=== PATIENT | male | born 1965 | race African-American/Black ===

== ENCOUNTER 2016-10-17 07:25 | Inpatient (IN) | payer OTHER ==
[2016-10-16 11:06] LABS: % IMMATURE GRANULYOCYTES 0.2 % (0.0-1.1); ABSOLUTE IMMATURE GRANULOCYTES 0.01 10^3/uL (0.00-0.10); ADD DIFF? NO; ADD MORPH? NO; ADD SCAN? NO; ATYPICAL LYMPHOCYTE FLAG 20 (0-99); FRAGMENT RBC FLAG 0 (0-99); HEMOGLOBIN 16.1 g/dL (13.7-17.5); LEFT SHIFT FLG 0 (0-99); LIPEMIA HEMOLYSIS FLAG 80 (0-99); MEAN CELL HEMOGLOBIN 29.2 pg (27.9-34.1); MEAN CELL HEMOGLOBIN CONCENTR. 33.5 g/dL (32.4-36.7); MEAN CELL VOLUME 87.1 fL (81.5-99.8); MEAN PLATELET VOLUME 8.5 fL (8.7-11.7); PLATELET CLUMPS FLAG 10 (0-99); PLATELET COUNT 367 10^3/uL (150-400); RED BLOOD CELL COUNT 5.51 10^6/uL (4.40-6.38)
--- NOTE | 2016-10-16 16:06 | GHP ---
[f rep st] PREOP HISTORY AND PHYSICAL DATE OF ADMISSION: 10/17/2016 PROBLEM: Severe right hip degenerative arthritis. HISTORY OF PRESENT ILLNESS: The patient is a 51-year-old male who will be admitted for a right hip resurfacing arthroplasty with Dr. Sharp at the [facility] on October 17, 2016. The patient had a left hip resurfacing arthroplasty in May 2016 with an excellent result. His right hip has also bothered him with activities such as putting on his shoes and socks, sleeping at night and prolonged standing. Because of the progressive and worsening pain as well as well as his debilitating pain, he has elected to proceed with a right hip resurfacing arthroplasty. The patient has tried and failed physical therapy based exercises, activity modification, and medication treatm ent. PAST MEDICAL HISTORY: Pertinent for hypertension and BPH. No history of MRSA, PE, DVT, hepatitis o r CAD. MEDICATIONS: Amlodipine, lisinopril, and an unknown BPH medication. MEDICATION ALLERGIES: He reports a medication allergy to Toradol, which causes severe headaches. N o history of metal allergies or sensitivities. SOCIAL HISTORY: The patient is . He lives in [place], [place]. 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 No history of tobacco or alcohol use. Occasional caffeine inta ke. No history of illicit drug use. Activities include jogging, walking and strength training. FAMILY HISTORY: Pertinent for hypertension. PHYSICAL EXAMINATION: GENERAL: He is an otherwise healthy-appearing 51-year-old male. VITAL SIGNS : Height 5 feet 11 inches tall, weight 260. BMI 35.8. HEENT: Head is normocephalic, atraumatic. Eyes are PERRLA. Conjunctivae and sclerae are clear. Mouth: He has good oral hygiene without any loose teeth. LUNGS: Clear. HEART: Regular rate and rhythm; without murmurs, gallops or rubs. E XTREMITIES: Pertinent findings are limited to the patient's right hip. He has full hip extension, 90 degrees of flexion, 0 degrees of internal rotation, 15 degrees of external rotation, and 30 degre es of abduction. He has pain at end range of all motions. DIAGNOSTIC IMAGING: Recent x-rays taken of the patient's right hip show severe [id number]-cmff degener ative arthritis with increased subchondral sclerosis, a few small subcortical cysts on both the femo ral head and acetabulum, as well as peripheral osteophyte formation. His left hip resurfacing arthr oplasty is in stable appearance. IMPRESSION: 1. Severe right hip degenerative arthritis. 2. Treated hypertension. 3. Recent diagnosis of benign prostatic hypertrophy. PLAN: The plan will be for the patient to undergo a right hip resurfacing arthroplasty. The surger y has been described to the patient including the risks, benefits and expectations. He understands the risk of sciatic nerve injury, metal allergy or sensitivities, infection, and risk of dislocation . Given his young age, he understands the possible need for future revision surgery. All his quest ions have been answered, and he consents to surgery here in the office. Copy requested to: [place] Niall Zhou /[id number]/ANDREINAL
[2016-10-17] MEDS ORDERED: LR 1,000 ML IV ONE (08:03)
[2016-10-17] MEDS ORDERED: LIDOCAINE 1% 5 ML SDV ID PRN (08:03)
[2016-10-17] MEDS ORDERED: SKIN ADHESIVE (DERMABOND) 1 EACH TP ONE (08:09)
[2016-10-17] MEDS ORDERED: ceFAZolin 1 GM/5 ML SYR ONE (08:10)
[2016-10-17] MEDS ORDERED: fentaNYL 250 MCG/5 ML INJ ONE (08:28)
[2016-10-17] MEDS ORDERED: PROPOFOL 200 MG/20 ML VIAL ONE ×3 (08:29→10:32)
[2016-10-17] MEDS ORDERED: TRANEXAMIC ACID IV ONE (08:30)
[2016-10-17] MEDS ORDERED: CHLORHEXIDINE GLUC HIBICLENS 118 ML BTL TP ONE ×2 (08:30→09:00)
[2016-10-17] MEDS ORDERED: CEFAZOLIN 2 GM/DEXTR 100 ML IV ONE (08:30)
[2016-10-17] MEDS ORDERED: NS IV ONE (08:30)
[2016-10-17] MEDS ORDERED: POVIDONE-IODINE 20 ML in SODIUM CL IRRIG SOLUTION 500 ML IRR ONE (08:30)
[2016-10-17] MEDS ORDERED: DEXAMETHASONE 4 MG/ML VIAL IVP ONE (08:30)
[2016-10-17] MEDS ORDERED: ACETAMINOPHEN 325 MG TAB PO ONE (08:30)
[2016-10-17] MEDS ORDERED: FAMOTIDINE 20 MG TAB PO ONE (08:30)
[2016-10-17] MEDS ORDERED: Herbals/Supplements -Info Only PO SCH (09:00)
[2016-10-17] MEDS ORDERED: ROPIVACAINE 0.2% 80 MG, EPINEPHrine 0.2 MG in BAG 0 ML IU ONE (09:00)
[2016-10-17] MEDS ORDERED: MIDAZOLAM 2 MG/2 ML VIAL ONE (09:19)
[2016-10-17] MEDS ORDERED: DEXAMETHASONE 4 MG/ML VIAL ONE ×2 (09:43)
[2016-10-17] MEDS ORDERED: morphINE *ANESTHESIA ONLY* 10 MG/ML VIAL ONE ×2 (09:45→10:22)
[2016-10-17] MEDS ORDERED: PHENYLEPHRINE HCL 100 MCG/ML SYR ONE (09:54)
[2016-10-17] MEDS ORDERED: epHEDrine SULFATE 10 MG/ML SYR ONE (10:01)
[2016-10-17] MEDS ORDERED: GLYCOPYRROLATE 0.2 MG/1 ML VIAL ONE (10:28)
[2016-10-17] MEDS ORDERED: PHENYLEPHRINE 10 MG/ML SDV ONE (10:37)
[2016-10-17] MEDS ORDERED: ONDANSETRON 4 MG/2 ML VIAL ONE (10:59)
--- NOTE | 2016-10-17 11:25 | POSTOPPROG ---
Post Op Note Date of Operation: 10/17/16 Surgeon: Quentin Sharp Network Director: Robin Anesthesiologist: Jesus Anesthesia: GET(General Endotracheal) Post-op Diagnosis: R hip arthritis Procedure: R BHR Inf/Abcess present in the surg proc area at time of surgery?: No EBL: 100-500
[2016-10-17] MEDS ORDERED: LACTULOSE 20 GM/30 ML UDCUP PO PRN (11:41)
[2016-10-17] MEDS ORDERED: NS 500 ML IV PRN (11:41)
[2016-10-17] MEDS ORDERED: PROMETHAZINE HCL 25 MG SUPPR PR PRN (11:41)
[2016-10-17] MEDS ORDERED: TEMAZEPAM 15 MG CAP PO PRN (11:41)
[2016-10-17] MEDS ORDERED: METOCLOPRAMIDE 10 MG/2 ML VIAL IVP PRN (11:41)
[2016-10-17] MEDS ORDERED: BISACODYL 10 MG SUPP PR PRN (11:41)
[2016-10-17] MEDS ORDERED: DIPHENOXYLATE/ATROPINE LOMOTIL 1 TAB PO PRN (11:41)
[2016-10-17] MEDS ORDERED: CYCLOBENZAPRINE 10 MG TAB PO PRN (11:41)
[2016-10-17] MEDS ORDERED: MAGNESIUM HYDROXIDE 30 ML UDCUP PO PRN (11:41)
[2016-10-17] MEDS ORDERED: ONDANSETRON 4 MG/2 ML VIAL IVP PRN (11:41)
[2016-10-17] MEDS ORDERED: diphenhydrAMINE 25 MG CAP PO PRN (11:41)
[2016-10-17] MEDS ORDERED: POLYETHYLENE GLYCOL 3350 17 GM PKT PO PRN (11:41)
[2016-10-17] MEDS ORDERED: PHARMACY PAIN CONSULT 1 EA MISC PRN (11:41)
[2016-10-17] MEDS ORDERED: ONDANSETRON DISINTEGRATING 4 MG TAB PO PRN (11:41)
[2016-10-17] MEDS ORDERED: traMADol 50 MG TAB PO PRN (11:41)
[2016-10-17] MEDS ORDERED: LR 1,000 ML IV SCH (12:00)
[2016-10-17] MEDS ORDERED: oxyCODONE IR 5 MG TAB ONE (12:15)
[2016-10-17] MEDS ORDERED: fentaNYL 100 MCG/2 ML INJ ONE ×2 (12:15→12:40)
--- NOTE | 2016-10-17 12:53 | GOP ---
[f rep st] OPERATIVE REPORT DATE OF OPERATION: 10/17/2016 SURGEON: Quentin Sharp MD COLOR MAKER DYER: Ramos Lowry CFA and Bishnu Jaeger PA-C. ANESTHESIA: General anesthesia. ANESTHESIOLOGIST: Kelby Lee MD PREOPERATIVE DIAGNOSIS: Right hip advanced degenerative arthritis. POSTOPERATIVE DIAGNOSIS: Right hip advanced degenerative arthritis. PROCEDURE PERFORMED: Right hip [place] hip resurfacing arthroplasty. FINDINGS: DESCRIPTION OF PROCEDURE: The patient was given 2 g of IV Ancef preoperatively within 60 minutes of surgery. He also received IV tranexamic acid at a dose of 20 mg/kg. He was placed on the operating room table and given spinal anesthesia with Marcaine by Dr. Lee. He was placed on the operating ro om table and given general anesthesia by Dr. Lee. A Izaguirre catheter was not used. He wore a ashwini sive stocking and SCD on the nonoperative leg. He was rolled to the left lateral decubitus position. An axillary roll was used, and all pressure points were carefully padded. The position was secured with the pegboard table attachment. I was careful to lock his pelvis in a vertical position. His per ineum was isolated with plastic adhesive drapes. His left hip and left lower extremity were prepped with ChloraPrep. They were draped free using sterile sheets, stockinette, and Ioban plastic drape. T he patient was very thick and muscular. It made positioning difficult. The [employer] time-out was performed to verify the correct patient identity and the correct surgical side and site. The [place] time-out was also performed. I made a 9-inch straight oblique posterolateral hip skin incision. He was very muscular. I had to ma ke a larger than normal incision. He had a deep layer of subcutaneous fat. This was sharply divided, and hemostasis was obtained using electrocautery. His fascia flex was identified and split along th e axis of its fibers. I then curved posteriorly and proximally and split the fascia of the gluteus m aximus and bluntly split the muscle fibers in line with their orientation. His sciatic nerve was gerald ntified and protected throughout the procedure. The Charnley self-retaining retractor was inserted. The external rotators and the posterior hip capsule were divided as separate layers at the base of t he femoral neck, tagged and reflected posteriorly. He had very hypertrophied external rotators. His gluteus priya tendon was divided and tagged in order to improve exposure and release tension on th e sciatic nerve. The hip was dislocated posteriorly. I used a sizing gauge to check the diameter of the neck and concluded that 50 mm was the proper head size. This is the same size that I had used on his opposite side. I performed a circumferential capsulotomy. I was able to retract the femoral hea d anteriorly and superiorly and hold it out of place with appropriate retractors. The remnant of the damaged labrum was excised. Part of his labrum was calcified. The acetabulum was reamed sequentiall y up to 56 mm. I selected the Mahamed monoblock porous-coated acetabular component with an outsid e diameter of 56 mm. This was firmly impacted and was very tight. I was careful to determine proper inclination and anteversion. I used the transverse acetabular ligament and other acetabular bony beck dmarks to help me properly determine cup orientation. Some small posterior inferior osteophytes were removed with an osteotome and rongeur. I was careful to leave a good lip of bone and capsule extend ing beyond the anterior-inferior lip of the metal cup. I then returned to preparation of the femoral head. Because of his bulk and the depth of his incisio n, exposure of the femoral head was difficult. Using appropriate jigs and guides, I inserted a guide pin into the femoral head and neck. I was careful to position in such a way there would be no notch ing of the neck. The large sterile metal goniometer was used to check the neck shaft angle. I reamed over the guide pin and inserted the reaming guide. I then used the cylindrical reamer down to the h ead and neck junction. This was followed by the flat reamer and the chamfer reamer. The head was siz ed for 50 mm. There was no impingement or damage to the neck. He had some moderate-sized anterior ne ck osteophytes which I removed with a rongeur. I drilled a small hole in the lesser trochanter and i nserted a suction cannula to create a negative pressure in the medullary canal. Small holes were dri lled on the flattened chamfer surfaces of the prepared head for cement anchors. The head was thoroug hly cleaned with the pulsating lavage and carefully dried. I used a CarboJet device to blow dry the cancellous surfaces. A single batch of Simplex cement with tobramycin was mixed. At about 50 seconds , I poured the liquid cement into the head component, inserted it onto the femoral head and impacted with cement. Excess cement was removed before it hardened. The acetabulum was irrigated and cleaned and inspected, and the hip was reduced. Stability and range of motion were checked. I placed my fin tonny along the anterior aspect of the acetabular component and flexed the hip to 110 degrees. There w as no anterior impingement. The suction cannula on the lesser trochanter was removed. The wound was thoroughly irrigated with a dilute Betadine solution. 40 mL of the joint anesthetic cocktail were in jected into the capsule, the deep musculature and the subcutaneous tissues along the skin edges. His sciatic nerve was reinspected and looked unharmed. The external rotators and the posterior capsu le were repaired in separate layers with #2 FiberWire sutures through drill holes in the greater tro chanter. This provided a strong posterior capsule and external rotator repair. The gluteus priya t endon was repaired with 2 interrupted gnkavm-sa-fuxox #2 FiberWire sutures. The fascia flex was repa ired 1st with 2 interrupted pmezah-eg-xqaga #2 FiberWire sutures, followed by a running #2 barbed Et hicon StrataFix PDO suture. Subcutaneous tissues were closed with a running 0 barbed Ethicon StrataF ix Monoderm suture. The skin was closed with a running 3-0 barbed Ethicon StrataFix Monoderm subcuti cular suture. The skin edges were reapproximated and sealed with Dermabond glue. The wound was cover ed with a strip of Telfa, and everything was held in place with a piece of clear plastic Tegaderm. The estimated blood loss was about 500 mL. I used a [employer] Kekaha hip resurfacing system. The acetabular component was 56 mm in d iameter and press-fit. The femoral head was 50 mm and cemented. He was awakened from anesthesia and rolled to the supine position on his [facility]. A long-leg MARIA D stocking and SCD were applied t o the operative leg. He wore a stocking and SCD on the opposite leg during the procedure. An abducti on pillow was placed between his knees. He was taken to PACU in satisfactory condition. There were n o recognized intraoperative complications. The sponge and needle count were correct on 2 occasions. Ramos Lowry and Yehuda Jaeger acted as surgical assistants. Their assistance was a medical necess ity. Copy requested to: [place], [place] /[id number]/MODL
[2016-10-17] MEDS: ACETAMINOPHEN 325 MG TAB PO SCH ×3 (13:13→23:04)
[2016-10-17] MEDS: ceFAZolin 2 GM/DEXTROSE 100 ML IV SCH ×2 (15:10→23:05)
[2016-10-17] MEDS: OMEGA-3 FATTY ACIDS 1,000 MG CAP PO SCH (15:11)
[2016-10-17] MEDS: LISINOPRIL 40 MG TAB PO SCH (15:11)
[2016-10-17] MEDS: CHOLECALCIFEROL VIT D3 1,000 UNITS TAB PO SCH (15:11)
[2016-10-17] MEDS: TRANEXAMIC ACID 650 MG TAB PO SCH ×3 (15:53→23:05)
[2016-10-17] MEDS: ASPIRIN 325 MG TAB PO SCH (19:57)
[2016-10-17] MEDS: FAMOTIDINE 20 MG TAB PO SCH (19:57)
[2016-10-17] MEDS: SENNOSIDES/DOCUSATE SODIUM TAB PO SCH (19:58)
[2016-10-17] MEDS: oxyCODONE IR 5 MG TAB PO PRN ×2 (19:58→21:46)
[2016-10-18] MEDS: oxyCODONE IR 5 MG TAB PO PRN ×4 (02:36→11:56)
[2016-10-18 04:40] LABS: HEMATOCRIT 37.4 % (40.0-51.0); HEMOGLOBIN 12.4 g/dL (13.7-17.5)
[2016-10-18] MEDS: ACETAMINOPHEN 325 MG TAB PO SCH ×2 (05:16→11:55)
[2016-10-18 07:38] VITALS: BP 127/70; TEMP 98.3
[2016-10-18] MEDS: SENNOSIDES/DOCUSATE SODIUM TAB PO SCH (07:39)
[2016-10-18] MEDS: TRANEXAMIC ACID 650 MG TAB PO SCH (07:40)
[2016-10-18] MEDS: CHOLECALCIFEROL VIT D3 1,000 UNITS TAB PO SCH (07:40)
[2016-10-18] MEDS: LISINOPRIL 40 MG TAB PO SCH (07:40)
[2016-10-18] MEDS: ASPIRIN 325 MG TAB PO SCH (07:41)
[2016-10-18] MEDS: FAMOTIDINE 20 MG TAB PO SCH (07:41)
[2016-10-18] MEDS: OMEGA-3 FATTY ACIDS 1,000 MG CAP PO SCH (07:42)
--- NOTE | 2016-10-18 08:47 | SOAPPROG ---
SOAP Progress Note Assessment/Plan: Assessment: Afebrile. Awake and alert. Moderate pain. Has been up and walking. Dsg is dry. H/H is ok. Films look good. Sciatic nerve intact. Plan: Up with PT for stairs. DC later today. 10/18/16 08:46 Objective: Vital Signs Temp Pulse Resp BP Pulse Ox 36.8 C 66 18 127/70 H 92 10/18/16 07:36 10/18/16 07:36 10/18/16 07:36 10/18/16 07:36 10/18/16 07:36 Laboratory Results 10/18/16 04:12 10/17/16 10/18/16 10/19/16 05:59 05:59 05:59 Intake Total 6040 200 Output Total 1400 550 Balance 4640 -350 ICD10 Worksheet Patient Problems: Problems Problem Status Onset Osteoarthritis of right hip Acute Primary osteoarthritis of left hip Acute
[2016-10-18] MEDS ORDERED: FERROUS SULFATE 140 MG TAB.ER PO SCH (09:00)
--- NOTE | 2016-10-18 09:05 | GDS ---
[f rep st] DISCHARGE SUMMARY ADMISSION DIAGNOSIS: Right hip severe degenerative arthritis. DISCHARGE DIAGNOSIS: Right hip severe degenerative arthritis. OPERATIONS PERFORMED: 10/17/2016, right hip Mahamed hip resurfacing arthroplasty. POSTOPERATIVE COMPLICATIONS: None. CONDITION ON DISCHARGE: Improved. DESCRIPTION OF HOSPITAL COURSE: The patient was admitted to the hospital on the morning of surgery. His admission CBC was normal. The same day, under general anesthesia, he underwent a right hip Bi [place] hip resurfacing arthroplasty. Postoperatively, he was treated with multimodal DVT prophyla xis including early mobilization and aspirin. On the 1st postoperative day, his hemoglobin and arely tocrit were 12.4 and 37.4. He was seen by Physical Therapy and made good progress with ambulation a nd stairs. As expected, postoperatively the hip was painful and stiff. By the time of discharge, ayden velasquez was afebrile and was independent, walking with crutches. DISPOSITION: The patient is staying in a local [facility]. I will see him in the office tomorro w. He may progress to full weightbearing on the right as tolerated. Use an abduction pillow in bed for 3 weeks. Use MARIA D stockings for 1 week. Continue aspirin 325 mg p.o. daily for 21 days. He canales s prescriptions for oxycodone and tramadol for pain control. If there are any problems, he is to ca ll me at the office. Copy requested to: [place], [place] /[id number]/MODL
[2016-10-18 11:26] VITALS: PULSE 65; RESP 16; O2SAT 93
== END 2016-10-18 12:15 | disposition home or self-care (01) | DRG 470 ==
LOC: F3N 07:25
PROVIDERS: ADMIT Orthopaedic Surgery; ATTEND Orthopaedic Surgery
PROC: 0SU90BZ Supplement Right Hip Joint with Resurfacing Device, Open Approach (ICD-10-PCS; principal; 2016-10-17 09:15)
DX: M16.11 Unilateral primary osteoarthritis, right hip (principal); Z96.642 Presence of left artificial hip joint; I10 Essential (primary) hypertension; N40.0 Benign prostatic hyperplasia without lower urinary tract symptoms
CPT/HCPCS: 97110-GP; 97116-GP; 97161-GP; 97165-GO; C1713; C1769; J0171; J0690; J1100; J2250; J2370; J2405; J2704; J2795; J3010